=== PATIENT | male | born 1965 ===

== ENCOUNTER 2021-10-04 08:21 | Day surgery (SDC) | payer OTHER ==
[2021-10-03 08:29] VITALS: BMI 28.3
--- NOTE | 2021-10-04 07:57 | P.GSHP ---
History of Present Illness H&P Date: 10/04/21 CHIEF COMPLAINT: Colon screen HISTORY OF PRESENT ILLNESS: The patient is a 56-year-old male who presents for colon screen. Lower endoscopy was offered for further evaluation and management. PAST MEDICAL HISTORY: Please see list. PAST SURGICAL HISTORY: Please see list. MEDICATIONS: Please see list. ALLERGIES: Please see list. SOCIAL HISTORY: No illicit drug use FAMILY HISTORY: No reports of Crohn disease or ulcerative colitis. REVIEW OF ORGAN SYSTEMS: CONSTITUTIONAL: No reports of fevers or chills. PHYSICAL EXAM: VITAL SIGNS: Stable GENERAL: Well-developed pleasant in no acute distress. HEENT: No scleral icterus. Extraocular movements grossly intact. Moist buccal mucosa. NECK: Supple without lymphadenopathy. CHEST: Unlabored respirations. Equal bilateral excursions. CARDIOVASCULAR: Regular rate and rhythm. Distal 2+ pulses. ABDOMEN: Soft, nontender, nondistended. MUSCULOSKELETAL: No clubbing, cyanosis, or edema. ASSESSMENT: 1. Colon screen. PLAN: 1. Recommend proceeding with a lower endoscopy Past Medical History Past Medical History: No Reported History Additional Past Medical History / Comment(s): ,HAVING BLEEDING WITH LIQUID STOOLS History of Any Multi-Drug Resistant Organisms: None Reported Past Surgical History: No Surgical Hx Reported Additional Past Surgical History / Comment(s): COLONOSCOPY Past Anesthesia/Blood Transfusion Reactions: No Reported Reaction Additional Past Anesthesia/Blood Transfusion Reaction / Comment(s): NEVER HAS HAD GENERAL ANESTHESIA Smoking Status: Former smoker - Past Family History Mother Family Medical History: No Reported History Father Family Medical History: No Reported History Medications and Allergies Home Medications Medication Instructions Recorded Confirmed Type No Known Home Medications 10/03/21 10/03/21 History Allergies Allergy/AdvReac Type Severity Reaction Status Date / Time No Known Allergies Allergy Verified 10/03/21 08:08
[~2021-10-04 08:21] MED LIST: LACTATED RINGERS 1,000 ML IV SCH; LIDOCAINE 1% (10MG/ML) FOR IV START INTRADERMA PRN
[2021-10-04 09:13] VITALS: RESP 16; TEMP 97.4
[2021-10-04] MEDS ORDERED: LIDOCAINE 2% INJ 20 MG/ML (2 ML VIAL) ONE (09:40)
[2021-10-04] MEDS ORDERED: PROPOFOL 10 MG/ML 20 ML VIAL IV ONE (09:40)
--- NOTE | 2021-10-04 10:17 | P.PCN ---
Date of Procedure: 10/04/21 Description of Procedure: PREOPERATIVE DIAGNOSIS: Personal history of colon polyps POSTOPERATIVE DIAGNOSIS: Rectal polyp Internal and external hemorrhoids, grade 2 OPERATION: Colonoscopy to the ascending colon Colonoscopy with cold forceps biopsy SURGEON: Marleni Whitney MD. ANESTHESIA: MAC. INDICATIONS: The patient is an 56-year-old male who presents family history of malignant colon polyps and personal history of colon polyps. Last colonoscopy 5 years. Benefits and risks were described and informed consent was obtained. DESCRIPTION OF PROCEDURE: The patient had undergone Sutab prep. The patient had been brought into the operating room and laid in the left lateral decubitus position. After adequate intravenous sedation, the rectum was examined with 2% lidocaine jelly. The prostate was unremarkable. External hemorrhoids were encountered. The rectal tone was within normal limits. No lesions were palpated in the rectal vault. An Olympus colonoscope was advanced requiring multiple abdominal wall pressure. The sigmoid colon was highly redundant. The scope was advanced to the ascending colon using multiple maneuvers. The prep was excellent. No sigmoid diverticulosis was encountered. Colonic polyps were found and removed. No evidence of focal colitis was found. Retroflexion of the scope demonstrated grade 2 internal hemorrhoids without active bleeding or inflammation. The colon was desufflated. The patient had tolerated the procedure well. Withdrawal time was over 6 minutes. FINDINGS: Aronchick preparation quality scale 1 (1-5) Internal hemorrhoids, grade 2 External hemorrhoids, grade 2 No arteriovenous malformations. No sigmoid diverticulosis Highly redundant sigmoid colon with advancement of the scope to the ascending colon. Removal of 1 polyps: - Cold forceps biopsy at 25 cm from the anal verge, 4 mm polyp, rectum No focal colitis. RECOMMENDATIONS: 1. Recommend barium enema for review of the cecum 2. Repeat colonoscopy in 2026 Plan - Discharge Summary Discharge Rx Participant: No New Discharge Prescriptions: Continue No Known Home Medications Discharge Medication List No Known Home Medications 10/03/21 [History] Follow up Appointment(s)/Referral(s): Marleni Whitney MD [STAFF PHYSICIAN] - 10/17/21 Patient Instructions/Handouts: Hemorrhoids (DC), Colorectal Polyps (GEN) Activity/Diet/Wound Care/Special Instructions: Repeat colonoscopy in years2026. Recommend barium enema. Discharge Disposition: HOME SELF-CARE
[2021-10-04 10:30] VITALS: PULSE 55
[2021-10-04 10:31] VITALS: BP 124/77
== END 2021-10-04 10:59 | disposition home or self-care (01) ==
LOC: ORWHC2ENDO 08:21
PROVIDERS: ATTEND Surgery Plastic and Reconstructive Surgery
DX: K64.4 Residual hemorrhoidal skin tags (principal); K64.8 Other hemorrhoids; Z86.010 Personal history of colon polyps; K62.1 Rectal polyp; K63.5 Polyp of colon; Z80.0 Family history of malignant neoplasm of digestive organs; Z87.891 Personal history of nicotine dependence
CPT/HCPCS: 45380; 88305; J2704; J2001

== ENCOUNTER 2024-02-23 16:05 | Emergency (ER) | payer OTHER ==
[2024-02-23 16:26] VITALS: RESP 16; TEMP 98.5
--- NOTE | 2024-02-23 16:29 | ED ---
General Adult HPI - General Chief complaint: ENT Stated complaint: Tiredness Time Seen by Provider: 02/23/24 16:18 Source: patient, RN notes reviewed Mode of arrival: wheelchair Limitations: language barrier - History of Present Illness Initial comments: 58-year-old male with no noted past medical history presents emergency department chief complaint of bodyaches, cough, runny nose and tenderness over the past 2 days. Patient states that he has been taking Tamiflu at home. He states that he has been drinking a lot of water and been urinating a lot as well. He denies any known sick contacts. Denies chest pain, heart palpitations, dizziness, lightheadedness, abdominal pain, fevers or chills. Patient states that he has an appointment scheduled with his primary care provider tomorrow. No other acute complaints at this time. - Related Data Home Medications Medication Instructions Recorded Confirmed No Known Home Medications 10/03/21 10/04/21 Allergies Allergy/AdvReac Type Severity Reaction Status Date / Time No Known Allergies Allergy Verified 02/23/24 16:26 Review of Systems ROS Statement: Those systems with pertinent positive or pertinent negative responses have been documented in the HPI. ROS Other: All systems not noted in ROS Statement are negative. Past Medical History Past Medical History: No Reported History Additional Past Medical History / Comment(s): ,HAVING BLEEDING WITH LIQUID STOOLS History of Any Multi-Drug Resistant Organisms: None Reported Past Surgical History: No Surgical Hx Reported Additional Past Surgical History / Comment(s): COLONOSCOPY Past Anesthesia/Blood Transfusion Reactions: No Reported Reaction Additional Past Anesthesia/Blood Transfusion Reaction / Comment(s): NEVER HAS HAD GENERAL ANESTHESIA Past Psychological History: No Psychological Hx Reported Smoking Status: Former smoker Past Alcohol Use History: None Reported Past Drug Use History: None Reported - Past Family History Mother Family Medical History: No Reported History Father Family Medical History: No Reported History General Exam - General Exam Comments Initial Comments: Visual Physical Exam Vital signs reviewed General: Well-appearing, nontoxic, no acute distress. Head: Normocephalic, atraumatic Eyes: PERRLA, EOMI ENT: Airway patent Chest: Nonlabored breathing Skin: No visual rash, normal skin tone Neuro: Alert and oriented 3 Musculoskeletal: No gross abnormalities Limitations: language barrier General appearance: alert, in no apparent distress Head exam: Present: atraumatic, normocephalic, normal inspection Eye exam: Present: normal appearance, PERRL, EOMI. Absent: scleral icterus, conjunctival injection, periorbital swelling ENT exam: Present: normal exam, mucous membranes moist Neck exam: Present: normal inspection. Absent: tenderness, meningismus, lymphadenopathy Respiratory exam: Present: normal lung sounds bilaterally. Absent: respiratory distress, wheezes, rales, rhonchi, stridor Cardiovascular Exam: Present: regular rate, normal rhythm, normal heart sounds. Absent: systolic murmur, diastolic murmur, rubs, gallop, clicks GI/Abdominal exam: Present: soft, normal bowel sounds. Absent: distended, tenderness, guarding, rebound, rigid Extremities exam: Present: normal inspection, full ROM, normal capillary refill. Absent: tenderness, pedal edema, joint swelling, calf tenderness Back exam: Present: normal inspection Skin exam: Present: warm, dry, intact, normal color. Absent: rash Course Vital Signs 02/23/24 02/23/24 16:23 20:34 Temperature 98.5 F Pulse Rate 83 60 Respiratory 16 16 Rate Blood Pressure 134/94 130/78 O2 Sat by Pulse 95 98 Oximetry Medical Decision Making - Medical Decision Making Was pt. sent in by a medical professional or institution (, PA, [employer], urgent care, hospital, or snf...) When possible be specific @ -No Did you speak to anyone other than the patient for history (EMS, parent, family, police, friend...)? What history was obtained from this source @ -I spoke to the patient's daughter at bedside and states that the patient has been complaining of bodyaches, fatigue and chills over the past few days. Did you review nursing and triage notes (agree or disagree)? Why? @ -I reviewed and agree with nursing and triage notes Were old charts reviewed (outside hosp., previous admission, EMS record, old EKG, old radiological studies, urgent care reports/EKG's, snf records)? Report findings @ -No old charts were reviewed Differential Diagnosis (chest pain, altered mental status, abdominal pain women, abdominal pain men, vaginal bleeding, weakness, fever, dyspnea, syncope, headache, dizziness, GI bleed, back pain, seizure, CVA, palpatations, mental health, musculoskeletal)? @ -COVID 19, RSV, influenza, pneumonia, acute bronchitis, URI, this list is not all inclusive EKG interpreted by me (3pts min.). @ -None X-rays interpreted by me (1pt min.). @ -None done CT interpreted by me (1pt min.). @ -None done U/S interpreted by me (1pt. min.). @ -None done What testing was considered but not performed or refused? (CT, X-rays, U/S, labs)? Why? @ -None What meds were considered but not given or refused? Why? @ -None Did you discuss the management of the patient with other professionals (professionals i.e. DrHari, PA, [employer], lab, RT, psych nurse, social service liaison, residential youth counselor, teacher, state wildlife officer, case management rn)? Give summary @ -No Was smoking cessation discussed for >3mins.? @ -No Was critical care preformed (if so, how long)? @ -No Were there social determinants of health that impacted care today? How? (Homelessness, low income, unemployed, alcoholism, drug addiction, transportation, low edu. Level, literacy, decrease access to med. care, snf, rehab)? @ -No Was there de-escalation of care discussed even if they declined (Discuss DNR or withdrawal of care, Hospice)? DNR status @ -No What co-morbidities impacted this encounter? (DM, HTN, Smoking, COPD, CAD, Cancer, CVA, ARF, Chemo, Hep., AIDS, mental health diagnosis, sleep apnea, morbid obesity)? @ -None Was patient admitted / discharged? Hospital course, mention meds given and route, prescriptions, significant lab abnormalities, going to OR and other pertinent info. @ -Discharge. 58-year-old male with generalized bodyaches fatigue and chills. Patient's vitals are stable. Comprehensive physical examination n coupled for signs of clinical dehydration however unremarkable. Patient's Cepheid is negative. Patient is provided with IV liter fluid bolus states that he is feeling somewhat better after this. Patient does have an appointment scheduled with his primary care provider tomorrow and recommend that he continues with this appointment for further evaluation. Recommend symptomatic treatment at home with increasing fluids and cycling Tylenol Motrin as needed. Discussed with Dr. Allen Undiagnosed new problem with uncertain prognosis? @ -No Drug Therapy requiring intensive monitoring for toxicity (Heparin, Nitro, Insulin, Cardizem)? @ -No Were any procedures done? @ -No Diagnosis/symptom? @ -viral syndrome Acute, or Chronic, or Acute on Chronic? @ -acute Uncomplicated (without systemic symptoms) or Complicated (systemic symptoms)? @ -uncomplicated Side effects of treatment? @ -No Exacerbation, Progression, or Severe Exacerbation? @ -No Poses a threat to life or bodily function? How? (Chest pain, [place], NH, pneumonia, PE, COPD, DKA, ARF, appy, cholecystitis, CVA, Diverticulitis, Homicidal, Suicidal, threat to staff... and all critical care pts) @ -No - Lab Data Lab Results 02/23/24 Range/Units 17:17 Influenza Type A (PCR) Not Detected (Not Detectd) Influenza Type B (PCR) Not Detected (Not Detectd) RSV (PCR) Not Detected (Not Detectd) SARS-CoV-2 (PCR) Not Detected (Not Detectd) Disposition Clinical Impression: Fatigue, Sore throat Disposition: HOME SELF-CARE Condition: Good Additional Instructions: Return to the emergency department for any new or worsening symptoms. Recommend follow-up tomorrow as scheduled with your primary care provider for further evaluation. Is patient prescribed a controlled substance at d/c from ED?: No Referrals: Nonstaff,Physician [Primary Care Provider] - 1-2 days Time of Disposition: 19:57
[2024-02-23] MEDS: SODIUM CHLORIDE 0.9% 1,000 ML IV STA (19:29)
[2024-02-23 20:36] VITALS: BP 130/78; PULSE 60
== END 2024-02-23 20:34 | disposition home or self-care (01) ==
LOC: EC 16:05
CPT/HCPCS: 87636; 96360; 99285